=== PATIENT | female | born 1950 | race Caucasian/White ===

== ENCOUNTER 2020-05-27 10:19 | Outpatient (CLI) | payer BC ==
[2020-05-27] MEDS ORDERED: GABA300C PO (11:13)
[2020-05-27] MEDS ORDERED: CYCL10TA2 PO (13:28)
[2020-05-27] MEDS ORDERED: VENL75TA2 PO (13:28)
[2020-05-27] MEDS ORDERED: HYDROCHLOROTH12.5 MG PO (13:28)
[2020-05-27] MEDS ORDERED: BUPR150T13 PO (13:28)
[2020-05-27] MEDS ORDERED: LEVO75TA PO (13:28)
[2020-05-27] MEDS ORDERED: TRAM50TA2 PO (13:28)
[2020-05-27] MEDS ORDERED: LISI-167 PO (13:28)
[2020-05-27] MEDS ORDERED: IPRA4AER INH (13:28)
== END 2020-05-27 23:59 | disposition home or self-care (01) ==
LOC: STAR 10:19
PROVIDERS: ATTEND Obstetrics & Gynecology Female Pelvic Medicine and Reconstructive Surgery
DX: Z01.818 Encounter for other preprocedural examination (principal); N95.0 Postmenopausal bleeding; N81.6 Rectocele; N81.10 Cystocele, unspecified; N39.3 Stress incontinence (female) (male); Z20.828 Contact with and (suspected) exposure to other viral communicable diseases
CPT/HCPCS: 87635; 93005

== ENCOUNTER 2020-06-02 07:02 | Day surgery (SDC) | payer BC ==
[~2020-06-02] VITALS: Ht 165.1 cm; Wt 78.8 kg
[~2020-06-02 07:02] MED LIST: BUPIVACAINE/PF 0.25% ONE; BUPR150T13 PO; CYCL-259 PO; EPINEPHRINE 1 MG/ML, 1ML ONE; FUROSEMIDE 20 MG/2 ML ONE; GABA300C PO; HYDROCHLOROTH12.5 MG PO; IPRA4AER INH; LEVO75TA PO; LISI-167 PO; NEOMY/POLYMYXIN B GU IRR. 1 ML ONE; TRAM50TA2 PO; VENL75TA2 PO
[2020-06-02] MEDS ORDERED: LACTATED RINGERS 1,000 ML IV SCH (07:30)
[2020-06-02] MEDS ORDERED: CHLORHEXIDINE 15 ML UDC MM ONE (07:30)
[2020-06-02 07:33] VITALS: BP 122/75
[2020-06-02] MEDS ORDERED: FENTANYL PF 100 MCG/2ML ONE ×2 (08:06→11:49)
[2020-06-02] MEDS ORDERED: HYDROmorphone 2 MG/ML, 1ML ONE (09:17)
[2020-06-02] MEDS ORDERED: ONDANSETRON 2MG/ML, 2ML ONE (09:39)
[2020-06-02] MEDS ORDERED: ROCURONIUM 10 MG/ML,10ML ONE (09:39)
[2020-06-02] MEDS ORDERED: SUGAMMADEX 200 MG/2 ML IVPush ONE (09:39)
[2020-06-02] MEDS ORDERED: DEXAMETHASONE 4 MG/ML, 1ML ONE (09:39)
[2020-06-02] MEDS ORDERED: PHENYLEPHRINE 10 MG/ML ONE (09:39)
[2020-06-02] MEDS ORDERED: PROPOFOL 10 MG/ML, 20ML ONE (09:39)
[2020-06-02] MEDS ORDERED: CEFAZOLIN 1,000 MG ONE (09:39)
[2020-06-02] MEDS ORDERED: METOPROLOL 1 MG/ML, 5ML IV PRN (10:30)
[2020-06-02] MEDS ORDERED: METOCLOPRAMIDE 5 MG/ML, 2ML IVPush PRN (10:30)
[2020-06-02] MEDS ORDERED: EPHEDRINE 50 MG/ML, 1ML IVPush PRN (10:30)
[2020-06-02] MEDS ORDERED: DIAZEPAM 5 MG/ML, 2ML IVPush PRN (10:30)
[2020-06-02] MEDS ORDERED: hydrALAzine 20 MG/ML, 1ML IV PRN (10:30)
[2020-06-02] MEDS ORDERED: HALOPERIDOL 5 MG/ML IV PRN (10:30)
[2020-06-02] MEDS ORDERED: ACETAMINOPHEN 325 MG TABLET PO PRN (10:30)
[2020-06-02] MEDS ORDERED: LABETALOL 5MG/ML, 20ML IV PRN (10:30)
[2020-06-02] MEDS ORDERED: ONDANSETRON 2MG/ML, 2ML IVPush PRN (10:30)
[2020-06-02] MEDS ORDERED: OXYcodone 5 MG/5 ML ORAL.SOL UDC PO PRN (10:30)
[2020-06-02] MEDS ORDERED: ALBUTEROL SULFATE 2.5 MG/3 ML NPPB PRN (10:30)
[2020-06-02] MEDS ORDERED: HYDROmorphone 1 MG/ML, 1ML INJ ONE (11:49)
[2020-06-02] MEDS ORDERED: OXYcodone 5 MG/5 ML ORAL.SOL UDC ONE (11:49)
[2020-06-02] MEDS: FENTANYL PF 100 MCG/2ML IV PRN ×2 (11:52→11:57)
[2020-06-02] MEDS: HYDROmorphone 1 MG/ML, 1ML INJ IVPush PRN ×2 (12:10→12:15)
[2020-06-02] MEDS ORDERED: KETOROLAC 30 MG/1 ML ONE (14:17)
[2020-06-02] MEDS ORDERED: KETOROLAC 30 MG/1 ML IVPush PRN (14:30)
== END 2020-06-02 14:50 | disposition home or self-care (01) ==
LOC: OUT 07:02
PROVIDERS: ATTEND Obstetrics & Gynecology Female Pelvic Medicine and Reconstructive Surgery
DX: N95.0 Postmenopausal bleeding (principal); N39.46 Mixed incontinence; N81.89 Other female genital prolapse; N88.8 Other specified noninflammatory disorders of cervix uteri; I10 Essential (primary) hypertension; M19.90 Unspecified osteoarthritis, unspecified site; J44.9 Chronic obstructive pulmonary disease, unspecified; E03.9 Hypothyroidism, unspecified; Z98.890 Other specified postprocedural states; Z79.899 Other long term (current) drug therapy; Z72.89 Other problems related to lifestyle; Z82.49 Family history of ischemic heart disease and other diseases of the circulatory system
CPT/HCPCS: 57265; 57282; 57288; 58552; 88307; C1771; J0171; J0690; J1100; J1170; J1885; J1940; J2370; J2405; J2704; J3010; J7120